=== PATIENT | female | born 1995 | race Caucasian/White ===

== ENCOUNTER 2016-12-18 16:33 | Emergency (ER) | payer OTHER ==
[~2016-12-18] VITALS: Ht 157.5 cm; Wt 18.5 kg
[~2016-12-18 16:33] MED LIST: ALBU8.5H3 INH; GUAI120S26 PO; PREN1TAB13 PO; [UNRECOGNIZED DRUG - OTHER]
[2016-12-18 16:34] VITALS: Ht 157.5 cm; Wt 18.5 kg
[2016-12-18 17:36] LABS: URINE BLOOD (Dip) POC Negative (NEGATIVE)
[2016-12-18] MEDS ORDERED: PRENAT PO (17:43)
--- NOTE | 2016-12-18 17:47 | ERD ---
ER Documentation Chief Complaint Date/Time DATE: 12/18/16 TIME: 17:45 Chief Complaint Complains of nausea and vomiting x 3 days HPI 21-year-old female complains of nausea vomiting for 3 days. Last menstrual period was approximately 6 weeks ago. She checked a home test that was positive but she wants to make sure and have it checked in the ER. She denies abdominal pain or bleeding. She is a G3 para 2 after confirmation today ROS All systems reviewed and are negative except as per history of present illness. Medications Home Meds Active Scripts Multivit/Min/Fol Ac/Iron/Pren* ( S*) 1 Tab Tab, 1 TAB PO DAILY, #100 TAB Prov:NEIDA AVILEZ MD 12/18/16 Ndmabqivzip-T-Bpowxhwmjb Hb* (Guaifenesin* DM Syrup) 120 Ml Syrup, 10 ML PO Q4H Y for COUGH, #120 ML Prov:MADDIE PATTERSON NP 01/22/16 Albuterol Sulfate* (Proair HFA*) 8.5 Gm Hfa.aer.ad, 2 PUFF INH Q4H Y for WHEEZING AND SOB, #1 INHALER Prov:MADDIE PATTERSON NP 01/22/16 Reported Medications Vit-Iron Fumarate-FA ( Vitamins Tablet) 1 Tab Tablet, 1 TAB PO DAILY, TAB 09/02/15 [Pre Natel Vitmin] No Conflict Check 11/14/12 Allergies Allergies: Coded Allergies: azithromycin (Verified Allergy, Mild, 10/01/15) Uncoded Allergies: RANCH (Allergy, Mild, 11/14/12) PMhx/Soc History of Surgery: No Anesthesia Reaction: No Hx Neurological Disorder: No Hx Respiratory Disorders: Yes (ASTHMA) Hx Cardiac Disorders: No Hx Psychiatric Problems: No Hx Miscellaneous Medical Probl: No Hx Alcohol Use: No Hx Substance Use: No Hx Tobacco Use: No Physical Exam Vitals Vital Signs Date Time Temp Pulse Resp B/P Pulse Ox O2 Delivery O2 Flow Rate FiO2 12/18/16 16:34 99.7 92 20 107/59 98 Physical Exam Const: [] Alert, [id number]-hlqserwhm per Head: Atraumatic Eyes: Normal Conjunctiva ENT: Normal External Ears, Nose and Mouth. Neck: Full range of motion..~ No meningismus. Resp: Clear to auscultation bilaterally Cardio: Regular rate and rhythm, no murmurs Abd: Soft, non tender, non distended. Normal bowel sounds Skin: No petechiae or rashes Back: No midline or flank tenderness Ext: No cyanosis, or edema Neur: Awake and alert Psych: Normal Mood and Affect Results 24 hrs Laboratory Tests Test 12/18/16 17:39 Bedside Urine pH (LAB) 6.0 Bedside Urine Protein (LAB) Trace Bedside Urine Glucose (UA) Negative Bedside Urine Ketones (LAB) Negative Bedside Urine Blood Negative Bedside Urine Nitrite (LAB) Negative Bedside Urine Leukocyte Esterase (L Negative Procedures/MDM Urine hCG is positive. Patient presents with nausea and vomiting and history suggestive of a 6 week . She does not have any abdominal pain or bleeding so signs or symptoms do not currently suggest complications of or ectopic . She will discharged home with vitamins and OB follow-up. She has an appointment with her OB in approximately 3 weeks. She should return for pain, bleeding, new or worsening symptoms or with primary doctor OB as directed. There is no other signs or symptoms to suggest causes of vomiting abdominal pain such as appendicitis, ovarian torsion , PID, obstruction, hepatobiliary disease. Departure Diagnosis: Primary Impression: Weeks of gestation: less than 8 weeks Qualified Code: Z3A.01 - Less than 8 weeks gestation of Condition: Stable Patient Instructions: , New Dx Additional Instructions: See OB as scheduled. Recheck for bleeding, pain, new or worsening symptoms. NEIDA AVILEZ MD Dec 18, 2016 17:47
== END 2016-12-18 18:00 | disposition home or self-care (01) ==
LOC: FTE 16:33
DX: R11.2 Nausea with vomiting, unspecified (principal); J45.909 Unspecified asthma, uncomplicated; Z3A.01 Less than 8 weeks gestation of pregnancy; Z32.01 Encounter for pregnancy test, result positive
CPT/HCPCS: 81003; Z7502; 99283

== ENCOUNTER 2018-01-21 18:38 | Emergency (ER) | END 2018-01-21 21:35 | disposition home or self-care (01) ==